=== PATIENT | female | born 1940 | race Caucasian/White ===

== ENCOUNTER → 2016-09-13 | Outpatient (CLI) | payer OTHER, BC | LOC: BMCIMAGING 10:23 | DX: Z12.31 Encounter for screening mammogram for malignant neoplasm of breast (principal); Z80.3 Family history of malignant neoplasm of breast | CPT/HCPCS: G0202 ==

== ENCOUNTER → 2016-09-20 | Outpatient (CLI) | payer OTHER, BC | LOC: BMCIMAGING 12:25 | DX: R92.8 Other abnormal and inconclusive findings on diagnostic imaging of breast (principal) | CPT/HCPCS: 76641; G0206 ==

== ENCOUNTER → 2016-09-28 | Outpatient (CLI) | payer OTHER, BC ==
[~2016-09-28] MED LIST: THROMBIN (BOVINE) 5,000 UNIT VIAL TP ONE
[2016-10-04 14:03] LABS: ACCESSION # HR17-21264; INTERPRETATION See Comments
== END ==
LOC: FIMAGING 11:39
PROVIDERS: ATTEND Internal Medicine
PROC: 0HBU3ZX Excision of Left Breast, Percutaneous Approach, Diagnostic (ICD-10-PCS; principal; 2016-09-28)
DX: C50.212 Malignant neoplasm of upper-inner quadrant of left female breast (principal)
CPT/HCPCS: 19083; 88305; 88341; 88342; 88360; 88361; G0206

== ENCOUNTER → 2016-10-11 | Outpatient (CLI) | payer OTHER, BC ==
[~2016-10-11] MED LIST changes: +LIDOCAINE 1% 30 ML SDV ONE; +NA BICARBONATE 50 MEQ/50 ML VIAL ONE; -THROMBIN (BOVINE) 5,000 UNIT VIAL TP ONE
== END ==
LOC: FIMAGING 07:24
PROVIDERS: ATTEND Surgery
DX: C50.912 Malignant neoplasm of unspecified site of left female breast (principal)
CPT/HCPCS: 19281; 38792; 76098; A9520

== ENCOUNTER → 2017-04-07 | Outpatient (CLI) | payer OTHER, BC | LOC: BHFA 12:45 | PROVIDERS: ATTEND Physician Assistant | DX: E78.5 Hyperlipidemia, unspecified (principal) ==

== ENCOUNTER → 2017-04-26 | Outpatient (CLI) | payer OTHER, BC | LOC: BHFA 08:30 | PROVIDERS: ATTEND Internal Medicine Cardiovascular Disease | DX: R93.1 Abnormal findings on diagnostic imaging of heart and coronary circulation (principal) | CPT/HCPCS: 78452; 93017; A9500 ==